=== PATIENT | male | born 1990 | race Caucasian/White ===

== ENCOUNTER 2021-11-09 02:30 | Emergency (ER) | payer SELFPAY ==
[~2021-11-09] VITALS: Ht 175.3 cm; Wt 72.6 kg
[2021-11-09 02:40] VITALS: BP 153/97
[2021-11-09] MEDS ORDERED: NS IV 1000 ML 1,000 ML IV SCH (02:45)
[2021-11-09] MEDS ORDERED: CEPHALEXIN 250 MG (KEFLEX) CAP PO STA (02:51)
--- NOTE | 2021-11-09 02:59 | ED General ---
General Chief Complaint: Substance Abuse Stated Complaint: RASH ON HANDS AND FEET Nursing Triage Note: PT ARRIVED TO ER BY PRIVATE VEHICLE WITH CHIEF COMPLAINT OF RASH/SWELLING IN HANDS. PT WAS ALERT AND AMBUALTORY ON ARRIVAL. PT APPEARED TO BE UNDER THE INFLUENCE OF SOMETHING. PT STARTED BABBLING ABOUT HIS HANDS SWELLING, PT TOOK SHOT OF VODKA TODAY AND THEN HE STARTED TALKING ABOUT SHOT AND HOW HIS ARM HAIRS FELT ELECTRICITY ON THEM. PT WAS ASKED ABOUT SMOKING AND PT SMOKES 1 PPD, HE HAD ONE SHOT OF VODKA (BUT DENIED DRINKING) AND USES METH (SMOKES). VITALS WERE DONE AND REPORT WAS GIVEN TO PROVIDER. History of Present Illness Date Seen by Provider: Nov 09, 2021 Time Seen by Provider: 02:39 Initial Comments 31 yr M is here with c/o bilateral hand swelling and redness which started a few days ago. Pt hauls trash and works until midnight. Denies fever, injury, falls, sensory loss. Pt can move his hands but feels a little stiff due to swelling. He also has multiple cuts over the hands. Pt states he does wear gloves when working, but hands are dirty and cut up . Pt appears high on something but denies using any drugs or alcohol. He only admits to using meth 3 days ago. He does not want labs , but only wants to address hand swelling. Allergies and Home Medications Allergies Coded Allergies: No Known Drug Allergies (Unverified , 11/09/21) Patient Home Medication List Home Medication List Reviewed: Yes Cephalexin (Cephalexin) 500 Mg Tablet, 500 MG PO BID Prescribed by: RAMILA AGUSTIN MD on 11/09/21 0309 Review of Systems Review of Systems Constitutional: no symptoms reported EENTM: no symptoms reported Respiratory: no symptoms reported Cardiovascular: no symptoms reported Gastrointestinal: no symptoms reported Musculoskeletal: other (hand swelling and redness) Skin: change in color, lesions Psychiatric/Neurological: No Symptoms Reported Hematologic/Lymphatic: No Symptoms Reported Immunological/Allergic: no symptoms reported Past Cqxyaar-Hhfzhs-Qfafik Hx Patient Social History Tobacco Use?: Yes Tobacco type used: Cigarettes Smoking Status: Current Everyday Smoker Substance use?: Yes Substance type: Methamphetamine Alcohol Use?: Yes Alcohol type: Hard Liquor Pt feels they are or have been: No Physical Exam Vital Signs Vital Signs - First Documented 11/09/21 02:40 Temp 36.6 Pulse 113 Resp 18 B/P (MAP) 153/97 (115) Pulse Ox 100 O2 Delivery Room Air Capillary Refill : Less Than 3 Seconds Height, Weight, BMI Height: '" Weight: lbs. oz. kg; 23.00 BMI Method: General Appearance: No Apparent Distress, WD/WN HEENT: PERRL/EOMI Respiratory: Lungs Clear, Normal Breath Sounds Cardiovascular: Regular Rate, Rhythm Extremity: Normal Capillary Refill, Inflammation, Swelling, Other (1. INSPECTION:- Swelling present with erythema over bilateral hands.- No deformity- Overlying skin shows multiple cuts all over both hands in various stages of healing. 2. PALPATION:Tenderness over the hands. - Warm to touch - Bone appears to be intact on palpation- Neurovascular bundle intact3. ROM:- Unrestricted) Neurologic/Psychiatric: Alert, Oriented x3, No Motor/Sensory Deficits Skin: Other (bilateral hands are dirty with embedded dirt, and skin is very dry and calloused) Progress/Results/Core Measures Suspected Sepsis SIRS Temperature: Pulse: 113 Respiratory Rate: 18 Blood Pressure 153 /97 Mean: 115 Results/Orders My Orders Orders - RAMILA AGUSTIN MD Ekg Tracing (11/09/21 02:41) Cephalexin Capsule (Keflex Capsule) (11/09/21 02:51) Vital Signs/I&O 11/09/21 02:40 Temp 36.6 Pulse 113 Resp 18 B/P (MAP) 153/97 (115) Pulse Ox 100 O2 Delivery Room Air Capillary Refill : Less Than 3 Seconds Blood Pressure Mean: 115 Progress Note : Progress Note 1. CELLULITIS BILATERAL HANDS: - Keflex for 7 days with first dose given in ER - Hand care and advice for clean hands, wear gloves when working, antibiotic ointment on cuts, - F/u with PCP Departure Impression Primary Impression: Cellulitis of hand Disposition: 01 HOME, SELF-CARE Condition: Stable Departure-Patient Inst. Referrals: NO,LOCAL PHYSICIAN (PCP/Family) Primary Care Physician Patient Instructions: Cellulitis (Skin Infection), Adult ED Add. Discharge Instructions: Keflex 500mg BID for 7 days - Keep hands clean, use antibiotic ointment on cuts on hands. All discharge instructions reviewed with patient and/or family. Voiced understanding. Scripts Cephalexin (Cephalexin) 500 Mg Tablet 500 MG PO BID for 7 Days, #14 TAB Prov: RAMILA AGUSTIN MD 11/09/21 Work/School Note: Work Release Form Date Seen in the Emergency Department: Nov 09, 2021 Return to Work: Nov 11, 2021 RAMILA AGUSTIN MD Nov 09, 2021 02:59
[2021-11-09] MEDS ORDERED: CEPH500T PO (03:03)
== END 2021-11-09 03:06 | disposition home or self-care (01) ==
LOC: ER FS 02:33
DX: L03.114 Cellulitis of left upper limb (principal); L03.113 Cellulitis of right upper limb; F17.210 Nicotine dependence, cigarettes, uncomplicated
CPT/HCPCS: 99283

== ENCOUNTER → 2022-02-28 | Outpatient (CLI) | payer OTHER ==
[~2022-02-28] MED LIST: CEPH500T PO; LIDOCAINE 1% INJ 20 ML VIAL INJ ONE
--- NOTE | 2022-02-28 12:16 | Diagnostic Imaging Report ---
INDICATION: Right upper chest nodule. Patient presents for ultrasound-guided biopsy. DETAILS OF THE PROCEDURE: The patient was brought to the procedure room and placed on the table in the supine position. Ultrasound imaging of the upper right chest was performed to evaluate for an appropriate entry site. The right chest was then prepped and draped in the usual sterile fashion. A small amount of 1% lidocaine was utilized for local anesthesia. A total of three core biopsies was obtained of the hypoechoic nodule in the upper right chest utilizing a 14-gauge Achieve needle. The needle was removed and hemostasis was obtained using manual compression. The patient tolerated the procedure well and left the Department in stable condition. IMPRESSION: Successful ultrasound-guided core biopsy of the hypoechoic nodule in the upper right chest subcutaneous tissues. Pathology results are currently pending. Dictated by: Dictated on workstation # [id number]
== END ==
LOC: RAD 11:00
PROVIDERS: ATTEND Nurse Practitioner Family
DX: N63.11 Unspecified lump in the right breast, upper outer quadrant (principal); R92.8 Other abnormal and inconclusive findings on diagnostic imaging of breast
CPT/HCPCS: 19083